=== PATIENT | female | born 1995 | race Two or more races ===

== ENCOUNTER 2023-01-08 10:48 | Emergency (ER) | payer OTHER ==
[~2023-01-08] VITALS: Ht 162.6 cm; Wt 58.1 kg
[2023-01-08] MEDS ORDERED: HYDROmorphone HCL 2 MG/ML VL/or syr IV ONE (11:45)
[2023-01-08 12:45] VITALS: BP 125/79
[2023-01-08] MEDS ORDERED: IBUP800T26 PO (17:40)
[2023-01-08] MEDS ORDERED: HYDR-4798 PO (17:40)
[2023-01-08] MEDS ORDERED: CEPH-510 PO (17:42)
[2023-01-08] MEDS ORDERED: TETANUS-DIPTH-ACEL PERTUSSIS 0.5ML SYR Tdap IM ONE (17:45)
[2023-01-08] MEDS ORDERED: NEOMYCIN-BACITRACIN-POLYM 15GM TOP OINT TOP SCH (22:00)
== END 2023-01-08 18:51 | disposition home or self-care (01) ==
LOC: EDBD 10:48 → ER 10:48
DX: S52.591A Other fractures of lower end of right radius, initial encounter for closed fracture (principal); S61.411A Laceration without foreign body of right hand, initial encounter; S60.221A Contusion of right hand, initial encounter; V89.2XXA Person injured in unspecified motor-vehicle accident, traffic, initial encounter; Y93.89 Activity, other specified; Y92.89 Other specified places as the place of occurrence of the external cause; Y99.8 Other external cause status
CPT/HCPCS: 12002; 29125; 90471; 90715; 96374; 99284; J1170; 73090; 73110